=== PATIENT | female | born 1960 | race Caucasian/White ===

== ENCOUNTER 2017-02-26 16:40 | Emergency (ER) | payer MEDICAID, OTHER ==
[2017-02-26 16:47] VITALS: BMI 26.5
[2017-02-26 16:51] VITALS: TEMP 98.1
[2017-02-26 17:40] LABS: SALICYLATE < 1 mg/dL (2.0-20.0)
--- NOTE | 2017-02-26 17:40 | ED PDOC ---
Arrival/HPI - General Chief Complaint: Psychiatric Evaluation Time Seen by Provider: 02/26/17 17:02 Historian: Patient - History of Present Illness Narrative History of Present Illness (Text): 02/26/17 17:37 56yr old female presents today sent in by [facility] for psychiatric evaluation. Patient states she's been feeling depressed since September and has been having thoughts of suicide. Patient states she was seen by her primary care physician and last night took her first dose of the medication without improvement in her symptoms. Patient denies chest pain or shortness of breath. Denies abdominal pain. Denies nausea or vomiting. Patient states that she is extremely depressed because she has been having difficulty finding a job. Patient states she was on top. She has full blown panic attacks. Patient states she is concerned because she is running out of money. Symptom Onset: Gradual Symptom Course: Worsening Past Medical History - Provider Review Nursing Documentation Reviewed: Yes - Travel History Have you recently traveled outside [place] w/in the past 3 mons?: No - Infectious Disease Hx of Infectious Diseases: None - Tetanus Immunization Tetanus Immunization: Unknown - Neurological Hx Neurological Disorder: Yes Hx Migraine: Yes - Endocrine/Metabolic Hx Endocrine Disorders: Yes Hx Hypothyroidism: Yes - Hematological/Oncological Hx Cancer: No - Integumentary Hx Eczema: No - Musculoskeletal/Rheumatological Hx Myasthenia Gravis: No - Gastrointestinal Hx Fatty Liver Disease: No - Genitourinary/Gynecological Hx Bladder Stone: No - Psychiatric Hx Depression: No Hx Substance Use: No - Surgical History Hx Arthroscopy: No - Anesthesia Hx Anesthesia: No Family/Social History - Physician Review Nursing Documentation Reviewed: Yes Family/Social History: Unknown Family HX Smoking Status: Former Smoker Hx Alcohol Use: No Hx Substance Use: No Allergies/Home Meds Allergies/Adverse Reactions: Allergies No Known Allergies Allergy (Verified 02/26/17 16:47) Home Medications: Home Meds Medication Instructions Recorded Confirmed Acetaminophen/Butalbital/Caf 1 tab PO DAILY 02/26/17 02/26/17 [Fioricet] Review of Systems - Review of Systems Constitutional: absent: Fatigue, Fevers Respiratory: absent: SOB, Cough Cardiovascular: absent: Chest Pain, Palpitations Gastrointestinal: absent: Abdominal Pain, Nausea, Vomiting Genitourinary Female: absent: Dysuria Musculoskeletal: absent: Arthralgias, Back Pain, Neck Pain Skin: absent: Rash, Pruritis Neurological: absent: Headache, Dizziness Psychiatric: Anxiety, Depression, Suicidal Ideation Physical Exam Vital Signs Reviewed: Yes Vital Signs Temp Pulse Resp BP Pulse Ox 02/26/17 17:43 71 18 118/79 100 02/26/17 16:50 98.1 F 74 19 121/81 100 Temperature: Afebrile Blood Pressure: Normal Pulse: Regular Respiratory Rate: Normal Appearance: Positive for: Well-Appearing, Non-Toxic, Comfortable Pain Distress: None Mental Status: Positive for: Alert and Oriented X 3 - Systems Exam Head: Present: Atraumatic Mouth: Present: Moist Mucous Membranes Neck: Present: Normal Range of Motion Respiratory/Chest: Present: Clear to Auscultation, Good Air Exchange. No: Respiratory Distress, Accessory Muscle Use Cardiovascular: Present: Regular Rate and Rhythm, Normal S1, S2. No: Murmurs Abdomen: No: Tenderness Upper Extremity: Present: Normal ROM Lower Extremity: Present: Normal ROM Neurological: Present: GCS=15, Speech Normal Skin: Present: Warm, Dry, Normal Color. No: Rashes Psychiatric: Present: Alert, Oriented x 3, Depressed Mood, Suicidal Ideation Medical Decision Making ED Course and Treatment: 02/26/17 17:40 Patient is nontoxic well-appearing in no distress vital signs are stable. CBC WNL CMP WNL Tylenol WNL Salicylate WNL Alcohol level WNL Urine drug screen wnl UA; wnl cxr: ot refused; states she recently had cxr; pt has paperwork with negative cxr. (added to paper chart) ekg NSR at 68b/m no st elevations; normal axis normal intervals pt is medically cleared for PES evaluation Patient was seen and evaluated by PES screener: mariel pt is not currently suicidal; cleared psychiatrically for discharge. Impression; depression Followup with behavioral health increase fluids return if symptoms worsen,persist or if new symptoms develop. - Lab Interpretations Lab Results: 02/26/17 17:12 02/26/17 17:12 Lab Results 02/26/17 17:27: Urine HCG, Qual Negative 02/26/17 17:27: Urine Opiates Screen Negative, Urine Methadone Screen Negative, Ur Barbiturates Screen Negative, Ur Phencyclidine Scrn Negative, Ur Amphetamines Screen Negative, U Benzodiazepines Scrn Negative, U Oth Cocaine Metabols Negative, U Cannabinoids Screen Negative 02/26/17 17:27: Urine Color Yellow, Urine Appearance Clear, Urine pH 6.0, Ur Specific [place] 1.010, Urine Protein Negative, Urine Glucose (UA) Negative, Urine Ketones Negative, Urine Blood Negative, Urine Nitrate Negative, Urine Bilirubin Negative, Urine Urobilinogen 0.2, Ur Leukocyte Esterase Negative 02/26/17 17:12: Alcohol, Quantitative < 10 02/26/17 17:12: Salicylates < 1 L, Acetaminophen < 10.0 L 02/26/17 17:12: Sodium 139, Potassium 4.6, Chloride 103, Carbon Dioxide 27, Anion Gap 14, BUN 10, Creatinine 0.7, Est GFR ( Amer) > 60, Est GFR (Non- Af Amer) > 60, Random Glucose 85, Calcium 9.6, Total Bilirubin 0.6, AST 27, ALT 25, Alkaline Phosphatase 48, Total Protein 7.4, Albumin 4.3, Globulin 3.1, Albumin/Globulin Ratio 1.4 02/26/17 17:12: WBC 5.4, RBC 4.87, Hgb 13.6, Hct 39.8, MCV 81.7, MCH 27.9, MCHC 34.2, RDW 13.0, Plt Count 227, MPV 10.3, Gran % 51.3, Lymph % (Auto) 38.6 H, [place] % (Auto) 8.0 H, Eos % (Auto) 1.7, Baso % (Auto) 0.4, Gran # 2.75, Lymph # 2.1, [place] # 0.4, Eos # 0.1, Baso # 0.02 - RAD Interpretation Radiology Orders: 02/26/17 17:03 CHEST ONE VIEW [RAD] Stat Disposition/Present on Arrival - Present on Arrival Any Indicators Present on Arrival: No History of DVT/PE: No History of Uncontrolled Diabetes: No Urinary Catheter: No History of Decub. Ulcer: No History Surgical Site Infection Following: None - Disposition Have Diagnosis and Disposition been Completed?: Yes Diagnosis: Depression Disposition: HOME/ ROUTINE Disposition Time: 19:08 Patient Plan: Discharge Patient Problems: Current Active Problems Problem Status Onset Depression Acute Condition: GOOD Additional Instructions: Followup with behavioral health center within the next 2 days. increase fluids return if symptoms worsen,persist or if new symptoms develop. Referrals: Bonifacio Craft DO [Primary Care Provider] - Follow up with [facility]] - Follow up with primary
[2017-02-26 17:41] LABS: ACETAMINOPHEN < 10.0 ug/ml (10.0-20.0); ALB/GLOB RATIO 1.4 (1.1-1.8); ALBUMIN 4.3 g/dL (3.0-4.8); ALT/SGPT 25 U/L (7-56); AST/SGOT 27 U/L (15-39); BLOOD UREA NITROGEN 10 mg/dL (7-21); CALCIUM 9.6 mg/dL (8.4-10.5); GFR AFRICAN-AMERICAN > 60; GFR NON-AFRICAN AMERICAN > 60
[2017-02-26 17:43] LABS: URINE BILIRUBIN NEGATIVE (NEGATIVE); URINE BLOOD NEGATIVE (NEGATIVE); URINE GLUCOSE (UA) NEGATIVE (NEGATIVE); URINE LEUKOCYTE ESTERASE NEGATIVE Leu/uL (NEGATIVE); URINE NITRATE NEGATIVE (NEGATIVE); URINE PROTEIN NEGATIVE mg/dL (<30 mg/dL); URINE UROBILINOGEN 0.2 E.U./dL (<1 E.U./dL)
[2017-02-26 17:53] LABS: URINE APPEARANCE CLEAR (CLEAR); URINE COLOR YELLOW (YELLOW)
[2017-02-26 17:56] LABS: HEMOGLOBIN 13.6 gm/dL (12.0-16.0); MEAN CELL VOLUME 81.7 fL (80.0-105.0); MEAN CORPUSCULAR HEMOGLOBIN 27.9 pg (25.0-35.0); MEAN CORPUSCULAR HGB CONC 34.2 g/dl (31.0-37.0); RBC 4.87 10^6/uL (3.5-6.1); WHITE BLOOD COUNT 5.4 10^3/ul (4.5-11.0)
[2017-02-26 17:57] LABS: BASO % 0.4 % (0.0-3.0); EOS % 1.7 % (1.5-5.0); GRAN # 2.75 (1.4-6.5); GRAN % 51.3 % (50.0-68.0); LYMPH # 2.1 (1.2-3.4); LYMPH % 38.6 % (22.0-35.0); MEAN PLATELET VOLUME 10.3 fl (7.0-11.0); PLATELET COUNT 227 10^3/uL (120.0-450.0)
[2017-02-26 17:58] LABS: BASO # 0.02 K/mm3 (0.0-2.0); EOS # 0.1 (0.0-0.7); MONO # 0.4 (0.1-0.6)
[2017-02-26 18:00] LABS: BARBITURATES, UR NEGATIVE (NEGATIVE); BENZODIAZEPINES, UR NEGATIVE (NEGATIVE); OPIATES, UR NEGATIVE (NEGATIVE); PHENCYCLIDINE, UR NEGATIVE (NEGATIVE)
[2017-02-26 19:34] VITALS: BP 122/75; PULSE 72; RESP 17; O2SAT 97
--- NOTE | 2017-02-27 13:02 | CARD ---
APPROVED REPORT EKG Measurement Heart [id number] <Conclusion> Normal sinus rhythm Minimal voltage criteria for LVH, may be normal variant Borderline ECG
== END 2017-02-26 19:31 | disposition home or self-care (01) ==
LOC: ED 16:40
DX: F32.9 Major depressive disorder, single episode, unspecified (principal)